=== PATIENT | female | born 1950 | race Caucasian/White ===

== ENCOUNTER 2018-02-09 16:49 | Emergency (ER) | payer MEDICARE, MEDICAID ==
--- NOTE | 2018-02-09 18:38 | RAD ---
THREE VIEWS RIGHT WRIST 02/09/18 HISTORY: Fall. Pain. COMPARISON: None. FINDINGS: There is diffuse bone demineralization. Intercarpal and radiocarpal joint spaces are preserved. No fr acture. No significant soft tissue swelling. IMPRESSION: No fracture. POS: [facility]
--- NOTE | 2018-02-09 19:01 | RAD ---
CHEST TWO VIEWS: 02/09/18 HISTORY: Trauma, pain. Fall. FINDINGS: Slight elongation of the aorta. Normal cardiac silhouette. The pulmonary vessels are slightly promine nt. There are increased interstitial opacities which may represent chronic change. Edema or infiltrat e cannot be excluded. Mild hyperinflation. There is no pneumothorax. There are indeterminate fractures involving the T12 and L1 vertebral bodies. Correlate clinically for point tenderness. IMPRESSION: 1. Hyperinflation with presumed chronic changes. Interstitial edema or infiltrate cannot be excl uded. 2. Indeterminate lumbar spine compression fractures at T12 and L1. POS: [facility]
== END 2018-02-09 17:40 | disposition home or self-care (01) ==
LOC: SCSER 16:49
DX: S20.211A Contusion of right front wall of thorax, initial encounter (principal); S60.211A Contusion of right wrist, initial encounter; S00.83XA Contusion of other part of head, initial encounter; W19.XXXA Unspecified fall, initial encounter
CPT/HCPCS: 71046

== ENCOUNTER 2018-12-09 10:54 | Outpatient (CLI) | payer MEDICARE, MEDICAID ==
--- NOTE | 2018-12-09 11:45 | MMO ---
Bilateral MAMMO Bilat Screen [facility]. CLINICAL HISTORY: Patient is 68 years old and is seen for screening. The patient has no family history of breast cancer. The patient has no personal history of cancer. VIEWS: The views performed were: bilateral craniocaudal with tomosynthesis and bilateral mediolateral oblique with tomosynthesis. FILMS COMPARED: The present examination has been compared to prior imaging studies performed at [facility] on 06/16/2005, 07/08/2007 and 07/03/2009, and at [facility] on 07/02/2004. MAMMOGRAM FINDINGS: There are scattered fibroglandular densities. There are vascular calcifications seen in both breasts. There are no suspicious masses, suspicious calcifications, or new areas of architectural distortion. IMPRESSION: A ROUTINE FOLLOW-UP MAMMOGRAM IN 1 YEAR IS RECOMMENDED. THE RESULTS OF THIS EXAM WERE SENT TO THE PATIENT. ACR BI-RADS Category 2 - Benign finding MAMMOGRAPHY NOTE: 1. A negative mammogram report should not delay a biopsy if a dominant of clinically suspicious mass is present. 2. Approximately 10% to 15% of breast cancers are not detected by mammography. 3. Adenosis and dense breasts may obscure an underlying neoplasm.
== END 2018-12-09 10:55 | disposition home or self-care (01) ==
LOC: BICMAMMO 10:54
PROVIDERS: ATTEND Family Medicine
DX: Z12.31 Encounter for screening mammogram for malignant neoplasm of breast (principal)
CPT/HCPCS: 77063; 77067

== ENCOUNTER 2018-12-09 21:41 | Emergency (ER) | payer MEDICARE, MEDICAID ==
[2018-12-09] MEDS ORDERED: Ondansetron ODT 4 MG TAB ONE (22:53)
--- NOTE | 2018-12-09 22:54 | RAD ---
F2 views of the chest: 12/09/2018 COMPARISON: 02/09/2018 HISTORY: Cough for 3 weeks FINDINGS: Multiple oval new densities are seen within the lateral aspect of the right lung base. Find ings are of calcific density and suggests callus formation associated with new rib fractures. This co uld be better assessed with follow-up dedicated rib radiographs. Diffuse increased linear interstitia l density with no pneumothorax, pleural fluid, lobar consolidation, or alveolar edema. Anterior wedge compression fracture of L1 and L2 noted, stable. IMPRESSION: Probable new right-sided rib fractures with associated callus. No radiographic evidence o f acute cardiopulmonary disease.
[2018-12-09 23:08] LABS: Hemoglobin 13.5 g/dL (12.0-16.0); Mean Corpuscular HGB CONC 32.3 g/dL (32.0-36.0); Mean Corpuscular Volume 89.9 fL (78.0-98.0); Mean Platelet Volume 7.1 fL (7.4-10.4); Platelet Count 166 thou/uL (130-400); RBC Distribution Width 12.7 % (11.5-14.5); Red Blood Cell (RBC) Count 4.65 mill/uL (4.20-5.40); White Blood Cell (WBC) Count 6.2 thou/uL (4.8-10.8)
[2018-12-09 23:13] LABS: ALT (SGPT) 15 U/L (8-55); AST (SGOT) 23 U/L (5-34); Alkaline Phosphatase 65 U/L (40-150); Anion Gap 13 mmol/L (10-20); BUN (Urea Nitrogen) 9 mg/dL (9.8-20.1); Bilirubin, Total 0.4 mg/dL (0.2-1.2); Calc. Creatinine Clearance 0 mL/min (70-130); Calcium 9.7 mg/dL (7.8-10.44); Carbon Dioxide 25 mmol/L (23-31); Chloride 102 mmol/L (98-107); Estimated GFR-MDRD 85; Globulin 2.8 g/dL (2.4-3.5); Glucose 108 mg/dL (80-115); Potassium 3.8 mmol/L (3.5-5.1); Protein, Total 6.8 g/dL (6.0-8.3); Sodium 136 mmol/L (136-145)
[2018-12-09 23:19] LABS: Band 3 % (5-11); Lymphocytes 18 % (21-51); MDiff Complete? YES; Monocytes 9 % (0-10); Neutrophil 70 % (42-75)
== END 2018-12-10 00:01 | disposition home or self-care (01) ==
LOC: SCSER 21:41
DX: R11.2 Nausea with vomiting, unspecified (principal)
CPT/HCPCS: 71046; 80053; 84484; 85025; 93005; Q0162

== ENCOUNTER 2022-09-25 10:11 | Outpatient (CLI) | payer MEDICARE, MEDICAID ==
[2022-09-25 13:57] LABS: #Basophils 0.1 10x3/uL (0.0-0.2); #Eosinphils 0.2 10x3/uL (0.0-0.5); #Monocytes 0.6 10x3/uL (0.0-1.1); #Neutrophils 3.1 10x3/uL (1.5-8.4); %Basophils 0.8 % (0.0-2.0); %Eosinophils 2.3 % (0.0-6.0); %Lymphocytes 41.4 % (18.0-47.0); %Monocytes 9.2 % (0.0-10.0); %Neutrophils 46.1 % (40.0-75.0); Hemoglobin 13.7 g/dL (12.0-15.5); Mean Corpuscular HGB CONC 33.9 g/dL (32.0-36.0); Mean Corpuscular Hemoglobin 31.2 pg (27.0-33.0); Mean Platelet Volume 11.5 fl (7.4-10.4); Platelet Count 234 10x3/uL (150-450); RBC Distribution Width 12.7 % (11.5-14.5); Red Blood Cell (RBC) Count 4.39 10x6/uL (3.90-5.03); White Blood Cell (WBC) Count 6.6 10x3/uL (3.5-10.5)
[2022-09-25 14:06] LABS: Anion Gap 15 mmol/L (10-20); BUN (Urea Nitrogen) 14 mg/dL (9.8-20.1); Calc. Creatinine Clearance 0 mL/min (70-130); Calcium 9.6 mg/dL (7.8-10.44); Carbon Dioxide 26 mmol/L (23-31); Chloride 105 mmol/L (98-107); Estimated GFR 95; Glucose 70 mg/dL (80-115); Potassium 4.1 mmol/L (3.5-5.1); Sodium 142 mmol/L (136-145)
[2022-09-25 14:11] LABS: Prothrombin Time 10.8 sec (9.5-12.1)
== END 2022-09-25 10:12 | disposition home or self-care (01) ==
LOC: LABBT 10:11
PROVIDERS: ATTEND Orthopaedic Surgery
DX: Z01.818 Encounter for other preprocedural examination (principal); M17.12 Unilateral primary osteoarthritis, left knee
CPT/HCPCS: 80048; 85025; 85610; 87081; 93005; 93010

== ENCOUNTER 2022-09-30 05:39 | Observation (INO) | payer MEDICARE, MEDICAID ==
[2022-09-30] MEDS ORDERED: Sodium Chloride 0.9% 0 ML ONE (05:49)
[2022-09-30] MEDS ORDERED: Tranexamic Acid 1,000 MG/10 ML VIAL ONE (05:49)
[2022-09-30] MEDS ORDERED: Vancomycin 1 GM/200 ML (FROZEN) BAG ONE (05:49)
[2022-09-30] MEDS ORDERED: Bupivacaine PF 0.5% 30 ML VIAL ONE ×2 (06:25→06:37)
[2022-09-30] MEDS ORDERED: Fentanyl 100 MCG/2 ML VIAL ONE ×2 (06:36→09:29)
[2022-09-30] MEDS ORDERED: Midazolam HCl 2 mg/2 ml Vial ONE (06:36)
[2022-09-30] MEDS ORDERED: Sodium Chloride 0.9% 100 ML ONE (06:57)
[2022-09-30] MEDS ORDERED: CEFAZOLIN 2 GM VIAL ONE (06:57)
[2022-09-30] MEDS ORDERED: Fentanyl 100 MCG/2 ML VIAL SLOW IVP PRN (07:04)
[2022-09-30] MEDS ORDERED: fentaNYL PF 100 MCG/2 ML SYRINGE ONE (07:12)
[2022-09-30] MEDS ORDERED: Ropivacaine 0.2% 550 ML 550 ML NERVE BLCK SCH (07:15)
[2022-09-30] MEDS ORDERED: Promethazine HCl 25 MG/ML VIAL IM PRN ×2 (07:15→09:05)
[2022-09-30] MEDS ORDERED: Zolpidem Tartrate 5 MG TAB PO PRN ×2 (07:15→09:05)
[2022-09-30] MEDS ORDERED: traMADol HCl 50 MG TAB PO PRN ×2 (07:15)
[2022-09-30] MEDS ORDERED: Ondansetron PF 4 MG/2 ML Vial IVP PRN ×2 (07:15→09:05)
[2022-09-30] MEDS ORDERED: HYDROcodone/Acetaminophen 10/325 mg Tablet PO PRN (07:15)
[2022-09-30 07:20] LABS: SARS-CoV-2 NAA Rapid Test Not Detected (NotDetected)
[2022-09-30] MEDS ORDERED: PROPOFOL 200 MG/20 ML VIAL ONE (07:23)
[2022-09-30] MEDS ORDERED: ePHEDrine 50 MG/ML VIAL ONE (07:23)
[2022-09-30] MEDS ORDERED: Dexamethasone 20 MG/5 ML VIAL ONE (07:23)
[2022-09-30] MEDS ORDERED: PHENYLEPHRINE-NS 100 MCG/ML 10 ML SYRINGE ONE (07:23)
[2022-09-30] MEDS ORDERED: Bupivacaine HCl 0.5%/Epinephrine 1:200,000/PF 30 ml Vial ONE (07:23)
[2022-09-30] MEDS ORDERED: Ondansetron PF 4 MG/2 ML Vial ONE (07:23)
[2022-09-30] MEDS ORDERED: Lidocaine 1% PF 5 ML VIAL ONE (07:23)
[2022-09-30] MEDS ORDERED: Acetaminophen 325 MG TAB PO PRN (09:05)
[2022-09-30] MEDS ORDERED: diphenhydrAMINE 25 MG CAP PO PRN (09:05)
[2022-09-30 12:49] VITALS: BMI 23.1
[2022-09-30] MEDS: Ketorolac Tromethamine 30 MG/ML VIAL IVP SCH ×3 (13:01→23:44)
[2022-09-30] MEDS: Sodium Chloride 0.9% 1,000 ML IV SCH ×2 (13:05→21:00)
[2022-09-30] MEDS: CEFAZOLIN 2 GM in Sodium Chloride 0.9% 100 ML IVPB SCH ×2 (14:20→23:39)
[2022-09-30] MEDS: HYDROcodone/Acetaminophen 10/325 mg Tablet PO PRN (16:23)
[2022-09-30] MEDS ORDERED: Vancomycin 1 GM in Premix Bag 1 BAG IVPB SCH (18:00)
[2022-09-30] MEDS: Aspirin 81 mg Enteric Coated Tablet PO SCH (21:50)
[2022-09-30] MEDS: Ferrous Gluconate 324 MG TAB PO SCH (21:50)
[2022-09-30] MEDS: Senokot S 8.6-50 MG TAB PO SCH (21:51)
[2022-10-01] MEDS: Ketorolac Tromethamine 30 MG/ML VIAL IVP SCH ×2 (05:49→11:29)
[2022-10-01] MEDS: Sodium Chloride 0.9% 1,000 ML IV SCH (05:54)
[2022-10-01 06:39] LABS: Hemoglobin 10.8 g/dL (12.0-16.0); Mean Corpuscular Hemoglobin 32.1 pg (27.0-31.0); Mean Corpuscular Volume 94.3 fl (78.0-98.0); Mean Platelet Volume 8.3 fL (7.4-10.4); Platelet Count 160 10x3/uL (130-400); RBC Distribution Width 11.8 % (11.5-14.5); Red Blood Cell (RBC) Count 3.37 mill/uL (4.20-5.40); White Blood Cell (WBC) Count 10.6 10x3/uL (4.8-10.8)
[2022-10-01] MEDS ORDERED: Multivitamin W/ Minerals 1 TAB PO SCH (09:00)
[2022-10-01] MEDS: Ferrous Gluconate 324 MG TAB PO SCH (09:21)
[2022-10-01] MEDS: HYDROcodone/Acetaminophen 10/325 mg Tablet PO PRN (09:21)
[2022-10-01] MEDS: Senokot S 8.6-50 MG TAB PO SCH (09:21)
[2022-10-01] MEDS: Aspirin 81 mg Enteric Coated Tablet PO SCH (09:21)
[2022-10-01 13:07] VITALS: BP 96/56; TEMP 98.2
== END 2022-10-01 15:19 | disposition home or self-care (01) ==
LOC: SDC 05:39 → SURG B 12:39
PROVIDERS: ADMIT Orthopaedic Surgery; ATTEND Orthopaedic Surgery
PROC: 0SRD0J9 Replacement of Left Knee Joint with Synthetic Substitute, Cemented, Open Approach (ICD-10-PCS; principal; 2022-09-30)
DX: M17.12 Unilateral primary osteoarthritis, left knee (principal); M25.561 Pain in right knee; M81.0 Age-related osteoporosis without current pathological fracture; I10 Essential (primary) hypertension; E78.00 Pure hypercholesterolemia, unspecified; Z79.899 Other long term (current) drug therapy; Z91.018 Allergy to other foods; Z20.822 Contact with and (suspected) exposure to COVID-19
CPT/HCPCS: 20985; 27447; 73560; 85027; 97110; 97116 ×2; 97530; A4306; C1713; C1776; J3370; U0002; 36415; 96365; 96367; 96375; 96376; G0378; J1100; J1885; J2250; J2405; J2704; J2795; J3010; J3372; J3490; J7050; S0020